=== PATIENT | female | born 1975 | race Caucasian/White ===

== ENCOUNTER → 2016-05-09 | Outpatient (CLI) | payer OTHER ==
--- NOTE | 2016-05-09 12:47 | REP ---
PELVIC SONOGRAPHY: HISTORY: Check IUD placement. IUD placed in 2002, amenorrhea. FINDINGS: Retroverted, retroflexed uterus is seen measuring 9.5 x 5.0 x 5.5 cm on transabdominal and transvaginal scanning. Endometrial echo is 0.5 cm in thickness. The IUD is seen within the uterine endometrium. Heterogeneous myometrium is seen question early fibroid change. No definable fibroid lesions however. The right ovary measures 6.5 x 4.9 x 6.4 cm in overall dimension. It contains two cysts. These appear to be simple by sonographic criteria. These measure 4.4 x 2.9 x 2.4 cm, and 3.0 x 2.2 x 2.2 cm. Doppler flow to the right ovary is felt to be normal with resistive index 0.55. The left ovary measures 4.5 x 1.9 x 2.6 cm. Its Doppler flow is normal with resistive index 0.55. IMPRESSION: Two simple cysts right ovary. IUD in good position. Mildly enlarged retroverted retroflexed uterus. Signed by Jamal Drew MD 05/09/2016 02:01 P
--- NOTE | 2016-05-11 10:31 | REP ---
Digital diagnostic bilateral mammography with CAD and focused left breast sonography: History: Left breast lump with pain. There [place]. Mammographic findings: A skin marker is affixed to the skin at the site of the palpable lump in the left breast inferiorly and slightly medially. Routine views left breast are augmented by magnified focal spot compression, CC, MLO and true MLO views. Routine views of the right breast are obtained. Scattered fibroglandular elements are seen bilaterally in a pattern which is symmetric. No dominant density is seen at the area of the palpable lump in the left breast or elsewhere in either breast mammographically. No microcalcification, architectural distortion, or worrisome skin change is seen. Sonographic findings: The left breast is examined sonographically from 6 o'clock to 8 o'clock in the area of palpable lump at 7 o'clock. Normal fairly homogeneous fibroglandular background echotexture is seen. No cyst, mass, acoustic shadowing or architectural distortion is seen by ultrasound. Impression: BIRADS category 1 negative bilateral breast imaging. This negative report should not dissuade one from biopsy of a palpable lump depending on its clinical characteristics. Clinical follow-up is recommended. BI-RADS/ACR category 1 mammogram. Negative. Routine annual screening mammography (for women over age 40). This mammogram was interpreted with the aid of an FDA-approved computer-aided detection system. The patient states she had a clinical breast exam in February 29, 2016 The patient letter being requested is M2. Signed by Jamal Drew MD 05/11/2016 01:28 P
== END ==
LOC: M RAD 09:44
PROVIDERS: ATTEND Advanced Practice Midwife
DX: Z30.431 Encounter for routine checking of intrauterine contraceptive device (principal); N83.201 Unspecified ovarian cyst, right side; N85.4 Malposition of uterus; N85.2 Hypertrophy of uterus; N63 Unspecified lump in breast; N64.4 Mastodynia
CPT/HCPCS: 76642; 76830; 76856; 93976; G0204